=== PATIENT | female | born 1960 | race Caucasian/White ===

== ENCOUNTER 2022-11-18 13:07 | Inpatient (IN) ==
[2022-11-18] MEDS ORDERED: hydrALAZINE 20 MG/1 ML VIAL IV STA ×2 (13:28→14:04)
[2022-11-18] MEDS ORDERED: NITROGLYCERIN 2% OINT 1 INCH/GM PACK TOP STA (13:28)
[2022-11-18] MEDS ORDERED: cloNIDine 0.1 MG TABLET PO STA (13:28)
[2022-11-18] MEDS ORDERED: ASPIRIN 325 MG TABLET PO STA (13:28)
[2022-11-18 13:39] LABS: Basophils # 0.1 10*3/uL (0.0-0.2); Basophils % 0.6 % (0.0-0.8); Eosinophils # 0.6 10*3/uL (0.0-0.87); Eosinophils % 4.5 % (0.00-10.9); Hematocrit 39.2 VOL% (35.7-47.0); Hemoglobin 12.4 GM/DL (12.0-16.0); Immature Granulocytes % 0.5 %; Immature Granulocytes Absolute 0.07 #; Lymphocytes # 1.5 10*3/uL (1.4-4.0); Lymphocytes % 11.3 % (21.3-54.2); Mean Corpuscular HGB Conc 31.6 GM/DL (32-36); Mean Corpuscular Volume 97.3 FL (87-102); Mean Platelet Volume 9.4 FL (9.6-12.0); Monocytes # 0.9 10*3/uL (0.11-0.8); Monocytes % 6.8 % (1.7-12.7); Neutrophils % 76.3 % (38.7-73.9); Platelet Count 558 T/CUMM (130-400); Red Blood Count 4.03 MC/CUMM (3.8-5.5); Red Cell Distribution Width 17.4 % (9.3-17.3); White Blood Count 12.8 T/CUMM (4-12)
[2022-11-18 13:42] LABS: Arterial Base Excess iSTAT -7 MMOL/L (-2.5-2.5); Arterial Bicarbonate iSTAT 16.7 MMOL/L (20-26); Arterial O2 Saturation iSTAT 95 % (95-100); Arterial PCO2 iSTAT 28 MM HG (35-48); Arterial PO2 iSTAT 73 MM HG (80-95); Arterial Total CO2 iSTAT 18 MMO/L (23-27); Arterial pH iSTAT 7.387 (7.35-7.45)
[2022-11-18 13:48] LABS: INR 1.1; PT Patient Result 11.6 SECS (10.1-12.1)
[2022-11-18 14:01] LABS: Albumin 2.9 G/DL (3.4-5.0); Bilirubin,Total 0.4 MG/DL (0.20-1.00); Calcium 8.7 MG/DL (8.5-10.1); Osmolality,Calculated 290.1 MOS/KG (273-304); Potassium 4.9 MMOL/L (3.5-5.1); Total Protein 6.3 G/DL (6.4-8.2)
[2022-11-18] MEDS ORDERED: LORazepam 2 MG/1 ML VIAL IV STA (14:04)
[2022-11-18] MEDS ORDERED: FUROSEMIDE 40 MG/4 ML VIAL IV STA ×2 (14:16→15:02)
[2022-11-18 16:18] LABS: Urine Appearance Clear (Clear); Urine Color Yellow (Yellow)
[2022-11-18 16:19] LABS: Bilirubin,Urine Small mg/dL (Negative); Blood, Urine Negative (Negative); Glucose,Urine (UA) Negative (Negative); Ketones,Urine 40 mg/dL (Negative); Nitrite,Urine Negative (Negative); Protein,Urine 30 mg/dL (Negative); Urine Specific Gravity 1.025 (1.001-1.035); Urine Urobilinogen 0.2 eU/dL (<2.0); Urine pH 5.5 (4.5-8.0)
[2022-11-18 16:22] LABS: Hyaline Casts,Urine 7 /LPF (0-3); Mucus,Urine Occasional /LPF (Occasional); Squamous Epithelial Cell,Urine Occasional /HPF (0-10)
[2022-11-18] MEDS ORDERED: NITROGLYCERIN SL 0.4 MG TABLET SL PRN (18:13)
[2022-11-18] MEDS ORDERED: NICOTINE 21 MG/24 HR PATCH TRANSDERM PRN (18:14)
[2022-11-18] MEDS ORDERED: ACETAMINOPHEN 325 MG TABLET PO PRN (18:14)
[2022-11-18] MEDS ORDERED: guaiFENesin/DM ER 600-30 MG TABLET PO PRN (18:14)
[2022-11-18] MEDS ORDERED: ONDANSETRON 4 MG/2 ML VIAL IV PRN (18:14)
[2022-11-18] MEDS ORDERED: hydrALAZINE 20 MG/1 ML VIAL IV PRN (18:14)
[2022-11-18] MEDS ORDERED: diphenhydrAMINE CAP 25 MG CAPSULE PO PRN (18:14)
[2022-11-18 18:25] LABS: Arterial Base Excess iSTAT -9 MMOL/L (-2.5-2.5); Arterial Bicarbonate iSTAT 15.7 MMOL/L (20-26); Arterial O2 Saturation iSTAT 97 % (95-100); Arterial PCO2 iSTAT 28 MM HG (35-48); Arterial PO2 iSTAT 88 MM HG (80-95); Arterial Total CO2 iSTAT 17 MMO/L (23-27); Arterial pH iSTAT 7.356 (7.35-7.45)
[2022-11-18] MEDS ORDERED: ALBUTEROL/IPRATROPIUM 3 ML NEB RESP TX ONE (18:42)
[2022-11-18] MEDS: ALBUTEROL/IPRATROPIUM 3 ML NEB RESP TX SCH (18:46)
[2022-11-18] MEDS ORDERED: SACUBITRIL/VALSARTAN 49-51 MG TABLET PO SCH (21:00)
[2022-11-18] MEDS: carvediloL 25 MG TABLET PO SCH (21:00)
[2022-11-18] MEDS: HEPARIN 5,000 UNIT/1 ML VIAL SUBCUT SCH (21:01)
[2022-11-18] MEDS: FUROSEMIDE 40 MG/4 ML VIAL IV SCH (21:01)
[2022-11-19] MEDS: ALBUTEROL/IPRATROPIUM 3 ML NEB RESP TX SCH ×4 (00:21→19:28)
[2022-11-19 06:07] LABS: Calcium 8.4 MG/DL (8.5-10.1); Osmolality,Calculated 294.8 MOS/KG (273-304); Potassium 4.7 MMOL/L (3.5-5.1)
[2022-11-19 06:40] LABS: Basophils # 0.1 10*3/uL (0.0-0.2); Basophils % 0.5 % (0.0-0.8); Eosinophils # 0.7 10*3/uL (0.0-0.87); Eosinophils % 6.8 % (0.00-10.9); Hematocrit 30.7 VOL% (35.7-47.0); Immature Granulocytes % 0.6 %; Immature Granulocytes Absolute 0.06 #; Lymphocytes % 18.5 % (21.3-54.2); Mean Corpuscular HGB Conc 30.9 GM/DL (32-36); Mean Corpuscular Volume 99.4 FL (87-102); Mean Platelet Volume 9.6 FL (9.6-12.0); Monocytes % 8.9 % (1.7-12.7); Neutrophils % 64.7 % (38.7-73.9); Platelet Count 502 T/CUMM (130-400); Red Cell Distribution Width 17.8 % (9.3-17.3); White Blood Count 10.8 T/CUMM (4-12)
[2022-11-19 06:52] LABS: Hemoglobin 9.5 GM/DL (12.0-16.0); Red Blood Count 3.09 MC/CUMM (3.8-5.5)
[2022-11-19] MEDS: HEPARIN 5,000 UNIT/1 ML VIAL SUBCUT SCH ×2 (08:45→21:18)
[2022-11-19] MEDS: carvediloL 25 MG TABLET PO SCH ×2 (08:45→18:20)
[2022-11-19] MEDS ORDERED: ENALAPRIL 20 MG TABLET PO SCH (09:00)
[2022-11-19] MEDS: PANTOPRAZOLE 40 MG TABLET PO SCH (11:32)
[2022-11-19] MEDS: FOLIC ACID 1 MG TABLET PO SCH (11:32)
[2022-11-19] MEDS: LORazepam 1 MG TABLET PO PRN ×2 (11:32→22:22)
[2022-11-19] MEDS: methylPREDNISolone SOD SUC 40 MG/1 ML VIAL IV SCH ×2 (11:33→18:15)
[2022-11-19] MEDS: BISACODYL 5 MG TABLET PO SCH (11:33)
[2022-11-19] MEDS: ATORVASTATIN 80 MG TABLET PO SCH (11:33)
[2022-11-19] MEDS: amLODIPine 10 MG TABLET PO SCH (14:04)
[2022-11-19] MEDS: ASPIRIN EC 81 MG TABLET PO SCH (14:05)
[2022-11-19] MEDS: CLOPIDOGREL 75 MG TABLET PO SCH (14:05)
[2022-11-19] MEDS: FUROSEMIDE 40 MG/4 ML VIAL IV SCH (19:57)
[2022-11-20] MEDS: ALBUTEROL/IPRATROPIUM 3 ML NEB RESP TX SCH ×5 (00:51→23:58)
[2022-11-20] MEDS: methylPREDNISolone SOD SUC 40 MG/1 ML VIAL IV SCH ×3 (03:06→17:44)
[2022-11-20 04:57] LABS: Basophils % 0.1 % (0.0-0.8); Hematocrit 29.8 VOL% (35.7-47.0); Hemoglobin 9.3 GM/DL (12.0-16.0); Immature Granulocytes % 0.8 %; Immature Granulocytes Absolute 0.07 #; Lymphocytes # 0.9 10*3/uL (1.4-4.0); Lymphocytes % 10.8 % (21.3-54.2); Mean Corpuscular HGB Conc 31.2 GM/DL (32-36); Mean Corpuscular Volume 96.4 FL (87-102); Mean Platelet Volume 9.6 FL (9.6-12.0); Monocytes # 0.3 10*3/uL (0.11-0.8); Monocytes % 2.9 % (1.7-12.7); Neutrophils % 85.4 % (38.7-73.9); Platelet Count 494 T/CUMM (130-400); Red Blood Count 3.09 MC/CUMM (3.8-5.5); Red Cell Distribution Width 17.6 % (9.3-17.3); White Blood Count 8.7 T/CUMM (4-12)
[2022-11-20 05:12] LABS: Calcium 8.3 MG/DL (8.5-10.1); Osmolality,Calculated 294.4 MOS/KG (273-304); Potassium 5.3 MMOL/L (3.5-5.1)
[2022-11-20 05:26] LABS: Phosphorous 6.2 MG/DL (2.5-4.9); Uric Acid 13.5 MG/DL (2.6-6.0)
[2022-11-20] MEDS ORDERED: SODIUM ZIRCONIUM CYCLOSILICATE 10 GM PACK PO ONE (08:57)
[2022-11-20] MEDS ORDERED: FUROSEMIDE 40 MG/4 ML VIAL IV SCH (09:00)
[2022-11-20] MEDS: FOLIC ACID 1 MG TABLET PO SCH (09:37)
[2022-11-20] MEDS: BISACODYL 5 MG TABLET PO SCH (09:37)
[2022-11-20] MEDS: CLOPIDOGREL 75 MG TABLET PO SCH (09:37)
[2022-11-20] MEDS: ASPIRIN EC 81 MG TABLET PO SCH (09:37)
[2022-11-20] MEDS: ATORVASTATIN 80 MG TABLET PO SCH (09:37)
[2022-11-20] MEDS: carvediloL 25 MG TABLET PO SCH ×2 (09:38→17:44)
[2022-11-20] MEDS: PANTOPRAZOLE 40 MG TABLET PO SCH (09:38)
[2022-11-20] MEDS: LORazepam 1 MG TABLET PO PRN (09:43)
[2022-11-20] MEDS: hydrALAZINE 25 MG TABLET PO SCH ×3 (09:44→21:17)
[2022-11-20] MEDS: amLODIPine 10 MG TABLET PO SCH (09:44)
[2022-11-20] MEDS: HEPARIN 5,000 UNIT/1 ML VIAL SUBCUT SCH ×2 (09:46→21:17)
[2022-11-20] MEDS: TOPIRAMATE 100 MG TABLET PO SCH ×2 (12:34→21:17)
[2022-11-20] MEDS: LORazepam 1 MG TABLET PO SCH ×2 (15:55→21:17)
[2022-11-21 00:51] LABS: Arterial Base Excess iSTAT -6 MMOL/L (-2.5-2.5); Arterial Bicarbonate iSTAT 18.3 MMOL/L (20-26); Arterial O2 Saturation iSTAT 95 % (95-100); Arterial PCO2 iSTAT 31 MM HG (35-48); Arterial PO2 iSTAT 77 MM HG (80-95); Arterial Total CO2 iSTAT 19 MMO/L (23-27); Arterial pH iSTAT 7.381 (7.35-7.45)
[2022-11-21] MEDS: MORPHINE 2 MG/1 ML SYRINGE IV PRN ×2 (01:12→14:35)
[2022-11-21] MEDS: methylPREDNISolone SOD SUC 40 MG/1 ML VIAL IV SCH ×3 (01:15→17:14)
[2022-11-21 04:03] LABS: Protein/Creatinine Ratio,Urine 0.2 RATIO
[2022-11-21 04:52] LABS: Basophils % 0.1 % (0.0-0.8); Hemoglobin 9.5 GM/DL (12.0-16.0); Immature Granulocytes % 0.5 %; Immature Granulocytes Absolute 0.05 #; Lymphocytes # 0.6 10*3/uL (1.4-4.0); Lymphocytes % 5.6 % (21.3-54.2); Mean Corpuscular HGB Conc 31.7 GM/DL (32-36); Mean Corpuscular Volume 97.1 FL (87-102); Mean Platelet Volume 9.8 FL (9.6-12.0); Monocytes # 0.2 10*3/uL (0.11-0.8); Monocytes % 1.8 % (1.7-12.7); Platelet Count 461 T/CUMM (130-400); Red Blood Count 3.09 MC/CUMM (3.8-5.5); Red Cell Distribution Width 17.7 % (9.3-17.3)
[2022-11-21 05:10] LABS: Calcium 8.4 MG/DL (8.5-10.1); Osmolality,Calculated 298.7 MOS/KG (273-304); Potassium 4.6 MMOL/L (3.5-5.1)
[2022-11-21 05:11] LABS: Phosphorous 6.3 MG/DL (2.5-4.9); Uric Acid 13.5 MG/DL (2.6-6.0)
[2022-11-21 05:23] LABS: Hypochromia Slight; Lymphocytes 5 % (20-55); Nucleated Red Blood Cells 1 /100 WBC (0-5); Platelet Estimate Increased; Total Cells Counted 100
[2022-11-21] MEDS: ALBUTEROL/IPRATROPIUM 3 ML NEB RESP TX SCH ×3 (08:10→19:25)
[2022-11-21] MEDS: ASPIRIN EC 81 MG TABLET PO SCH (09:55)
[2022-11-21] MEDS: PANTOPRAZOLE 40 MG TABLET PO SCH (09:55)
[2022-11-21] MEDS: ATORVASTATIN 80 MG TABLET PO SCH (09:55)
[2022-11-21] MEDS: LORazepam 1 MG TABLET PO SCH ×3 (09:55→20:26)
[2022-11-21] MEDS: cloNIDine 0.1 MG TABLET PO SCH (09:55)
[2022-11-21] MEDS: hydrALAZINE 25 MG TABLET PO SCH (09:55)
[2022-11-21] MEDS: carvediloL 25 MG TABLET PO SCH ×2 (09:55→17:13)
[2022-11-21] MEDS: amLODIPine 10 MG TABLET PO SCH (09:56)
[2022-11-21] MEDS: BISACODYL 5 MG TABLET PO SCH (09:56)
[2022-11-21] MEDS: CLOPIDOGREL 75 MG TABLET PO SCH (09:56)
[2022-11-21] MEDS: FOLIC ACID 1 MG TABLET PO SCH (09:56)
[2022-11-21] MEDS: HEPARIN 5,000 UNIT/1 ML VIAL SUBCUT SCH ×2 (09:56→20:25)
[2022-11-21] MEDS: TOPIRAMATE 100 MG TABLET PO SCH ×2 (10:48→20:26)
[2022-11-21] MEDS ORDERED: PHENOL 1.4% THROAT SPRAY 177 ML BOTTLE PO PRN (12:17)
[2022-11-21] MEDS: ZALEPLON 5 MG CAPSULE PO PRN (20:25)
[2022-11-21] MEDS: ASCORBIC ACID 500 MG TABLET PO SCH (20:26)
[2022-11-22] MEDS: ALBUTEROL/IPRATROPIUM 3 ML NEB RESP TX SCH ×4 (00:13→19:21)
[2022-11-22] MEDS: methylPREDNISolone SOD SUC 40 MG/1 ML VIAL IV SCH ×3 (01:13→18:24)
[2022-11-22 04:35] LABS: Hematocrit 29.5 VOL% (35.7-47.0); Hemoglobin 9.3 GM/DL (12.0-16.0); Immature Granulocytes % 0.8 %; Immature Granulocytes Absolute 0.07 #; Lymphocytes # 0.9 10*3/uL (1.4-4.0); Lymphocytes % 9.5 % (21.3-54.2); Mean Corpuscular HGB Conc 31.5 GM/DL (32-36); Mean Corpuscular Volume 96.4 FL (87-102); Monocytes # 0.4 10*3/uL (0.11-0.8); Monocytes % 4.4 % (1.7-12.7); Neutrophils % 85.3 % (38.7-73.9); Platelet Count 428 T/CUMM (130-400); Red Blood Count 3.06 MC/CUMM (3.8-5.5); Red Cell Distribution Width 17.5 % (9.3-17.3); White Blood Count 8.92 T/CUMM (4-12)
[2022-11-22 05:02] LABS: Calcium 8.1 MG/DL (8.5-10.1); Osmolality,Calculated 299.8 MOS/KG (273-304); Potassium 4.7 MMOL/L (3.5-5.1)
[2022-11-22 05:04] LABS: Calcium 8.2 MG/DL (8.5-10.1); Osmolality,Calculated 300.7 MOS/KG (273-304)
[2022-11-22] MEDS: cloNIDine 0.1 MG TABLET PO SCH (09:28)
[2022-11-22] MEDS: ASCORBIC ACID 500 MG TABLET PO SCH ×2 (09:28→20:04)
[2022-11-22] MEDS: carvediloL 25 MG TABLET PO SCH ×2 (09:28→16:47)
[2022-11-22] MEDS: TOPIRAMATE 100 MG TABLET PO SCH ×2 (09:28→20:04)
[2022-11-22] MEDS: ATORVASTATIN 80 MG TABLET PO SCH (09:28)
[2022-11-22] MEDS: FOLIC ACID 1 MG TABLET PO SCH (09:28)
[2022-11-22] MEDS: LORazepam 1 MG TABLET PO SCH ×3 (09:29→20:05)
[2022-11-22] MEDS: ASPIRIN EC 81 MG TABLET PO SCH (09:29)
[2022-11-22] MEDS: BISACODYL 5 MG TABLET PO SCH (09:29)
[2022-11-22] MEDS: PANTOPRAZOLE 40 MG TABLET PO SCH (09:29)
[2022-11-22] MEDS: HEPARIN 5,000 UNIT/1 ML VIAL SUBCUT SCH ×2 (09:30→20:04)
[2022-11-22] MEDS: CLOPIDOGREL 75 MG TABLET PO SCH (09:30)
[2022-11-22] MEDS: ZALEPLON 5 MG CAPSULE PO PRN (20:05)
[2022-11-22] MEDS: MORPHINE 2 MG/1 ML SYRINGE IV PRN (20:07)
[2022-11-23] MEDS: ALBUTEROL/IPRATROPIUM 3 ML NEB RESP TX SCH ×4 (00:35→19:27)
[2022-11-23] MEDS: methylPREDNISolone SOD SUC 40 MG/1 ML VIAL IV SCH ×4 (02:03→22:16)
[2022-11-23 05:21] LABS: Basophils % 0.1 % (0.0-0.8); Hematocrit 32.1 VOL% (35.7-47.0); Hemoglobin 10.3 GM/DL (12.0-16.0); Immature Granulocytes % 0.5 %; Immature Granulocytes Absolute 0.06 #; Lymphocytes # 1.2 10*3/uL (1.4-4.0); Lymphocytes % 10.6 % (21.3-54.2); Mean Corpuscular HGB Conc 32.1 GM/DL (32-36); Mean Corpuscular Volume 96.4 FL (87-102); Mean Platelet Volume 10.1 FL (9.6-12.0); Monocytes # 0.5 10*3/uL (0.11-0.8); Monocytes % 4.7 % (1.7-12.7); Neutrophils % 84.1 % (38.7-73.9); Platelet Count 431 T/CUMM (130-400); Red Blood Count 3.33 MC/CUMM (3.8-5.5); Red Cell Distribution Width 17.2 % (9.3-17.3); White Blood Count 11.54 T/CUMM (4-12)
[2022-11-23 05:58] LABS: Calcium 8.3 MG/DL (8.5-10.1); Osmolality,Calculated 302.8 MOS/KG (273-304); Potassium 4.4 MMOL/L (3.5-5.1)
[2022-11-23] MEDS: MORPHINE 2 MG/1 ML SYRINGE IV PRN (08:12)
[2022-11-23] MEDS: carvediloL 25 MG TABLET PO SCH ×2 (09:51→17:43)
[2022-11-23] MEDS: ATORVASTATIN 80 MG TABLET PO SCH (09:51)
[2022-11-23] MEDS: cloNIDine 0.1 MG TABLET PO SCH (09:51)
[2022-11-23] MEDS: PANTOPRAZOLE 40 MG TABLET PO SCH (09:51)
[2022-11-23] MEDS: CLOPIDOGREL 75 MG TABLET PO SCH (09:51)
[2022-11-23] MEDS: ASPIRIN EC 81 MG TABLET PO SCH (09:51)
[2022-11-23] MEDS: ASCORBIC ACID 500 MG TABLET PO SCH ×2 (09:51→21:42)
[2022-11-23] MEDS: TOPIRAMATE 100 MG TABLET PO SCH ×2 (09:51→21:42)
[2022-11-23] MEDS: FOLIC ACID 1 MG TABLET PO SCH (09:52)
[2022-11-23] MEDS: LORazepam 1 MG TABLET PO SCH ×3 (09:52→21:42)
[2022-11-23] MEDS: HEPARIN 5,000 UNIT/1 ML VIAL SUBCUT SCH ×2 (09:57→21:42)
[2022-11-23] MEDS: BISACODYL 5 MG TABLET PO SCH (10:39)
[2022-11-24] MEDS: ALBUTEROL/IPRATROPIUM 3 ML NEB RESP TX SCH ×4 (00:27→20:51)
[2022-11-24 04:55] LABS: Basophils % 0.1 % (0.0-0.8); Hematocrit 30.9 VOL% (35.7-47.0); Hemoglobin 9.7 GM/DL (12.0-16.0); Immature Granulocytes % 0.5 %; Immature Granulocytes Absolute 0.05 #; Lymphocytes # 0.7 10*3/uL (1.4-4.0); Lymphocytes % 7.1 % (21.3-54.2); Mean Corpuscular HGB Conc 31.4 GM/DL (32-36); Mean Platelet Volume 10.2 FL (9.6-12.0); Monocytes # 0.2 10*3/uL (0.11-0.8); Monocytes % 2.2 % (1.7-12.7); Neutrophils % 90.1 % (38.7-73.9); Platelet Count 380 T/CUMM (130-400); Red Blood Count 3.22 MC/CUMM (3.8-5.5); White Blood Count 9.48 T/CUMM (4-12)
[2022-11-24 05:15] LABS: Calcium 8.3 MG/DL (8.5-10.1); Osmolality,Calculated 304.7 MOS/KG (273-304)
[2022-11-24] MEDS: ASCORBIC ACID 500 MG TABLET PO SCH ×2 (09:26→21:42)
[2022-11-24] MEDS: ATORVASTATIN 80 MG TABLET PO SCH (09:26)
[2022-11-24] MEDS: cloNIDine 0.1 MG TABLET PO SCH (09:26)
[2022-11-24] MEDS: carvediloL 25 MG TABLET PO SCH ×2 (09:27→16:10)
[2022-11-24] MEDS: FOLIC ACID 1 MG TABLET PO SCH (09:27)
[2022-11-24] MEDS: TOPIRAMATE 100 MG TABLET PO SCH ×2 (09:27→21:42)
[2022-11-24] MEDS: LORazepam 1 MG TABLET PO SCH ×3 (09:27→21:43)
[2022-11-24] MEDS: PANTOPRAZOLE 40 MG TABLET PO SCH (09:27)
[2022-11-24] MEDS: CLOPIDOGREL 75 MG TABLET PO SCH (09:27)
[2022-11-24] MEDS: ASPIRIN EC 81 MG TABLET PO SCH (09:27)
[2022-11-24] MEDS: HEPARIN 5,000 UNIT/1 ML VIAL SUBCUT SCH ×2 (09:29→21:45)
[2022-11-24] MEDS: methylPREDNISolone SOD SUC 40 MG/1 ML VIAL IV SCH ×2 (09:36→22:05)
[2022-11-24] MEDS: MORPHINE 2 MG/1 ML SYRINGE IV PRN (17:39)
[2022-11-25] MEDS: ALBUTEROL/IPRATROPIUM 3 ML NEB RESP TX SCH ×4 (01:17→19:25)
[2022-11-25 05:12] LABS: Hematocrit 30.9 VOL% (35.7-47.0); Hemoglobin 9.5 GM/DL (12.0-16.0); Immature Granulocytes % 0.6 %; Immature Granulocytes Absolute 0.05 #; Lymphocytes # 0.7 10*3/uL (1.4-4.0); Lymphocytes % 8.6 % (21.3-54.2); Mean Corpuscular HGB Conc 30.7 GM/DL (32-36); Mean Corpuscular Volume 97.8 FL (87-102); Mean Platelet Volume 10.4 FL (9.6-12.0); Monocytes # 0.2 10*3/uL (0.11-0.8); Monocytes % 2.8 % (1.7-12.7); Platelet Count 379 T/CUMM (130-400); Red Blood Count 3.16 MC/CUMM (3.8-5.5); Red Cell Distribution Width 17.2 % (9.3-17.3); White Blood Count 8.62 T/CUMM (4-12)
[2022-11-25 05:35] LABS: Calcium 8.5 MG/DL (8.5-10.1); Osmolality,Calculated 305.3 MOS/KG (273-304); Potassium 5.7 MMOL/L (3.5-5.1)
[2022-11-25] MEDS: MORPHINE 2 MG/1 ML SYRINGE IV PRN ×2 (07:44→22:23)
[2022-11-25 08:40] LABS: Calcium 8.6 MG/DL (8.5-10.1); Osmolality,Calculated 298.5 MOS/KG (273-304)
[2022-11-25] MEDS: FOLIC ACID 1 MG TABLET PO SCH (09:43)
[2022-11-25] MEDS: CLOPIDOGREL 75 MG TABLET PO SCH (09:43)
[2022-11-25] MEDS: carvediloL 25 MG TABLET PO SCH ×2 (09:43→19:12)
[2022-11-25] MEDS: ATORVASTATIN 80 MG TABLET PO SCH (09:43)
[2022-11-25] MEDS: cloNIDine 0.1 MG TABLET PO SCH (09:43)
[2022-11-25] MEDS: ASPIRIN EC 81 MG TABLET PO SCH (09:43)
[2022-11-25] MEDS: ASCORBIC ACID 500 MG TABLET PO SCH ×2 (09:44→21:39)
[2022-11-25] MEDS: LORazepam 1 MG TABLET PO SCH ×3 (09:44→21:39)
[2022-11-25] MEDS: PANTOPRAZOLE 40 MG TABLET PO SCH (09:48)
[2022-11-25] MEDS: TOPIRAMATE 100 MG TABLET PO SCH ×2 (09:48→21:39)
[2022-11-25] MEDS: HEPARIN 5,000 UNIT/1 ML VIAL SUBCUT SCH ×2 (09:51→21:39)
[2022-11-25] MEDS: hydrALAZINE 25 MG TABLET PO SCH ×3 (11:57→21:38)
[2022-11-26] MEDS: ALBUTEROL/IPRATROPIUM 3 ML NEB RESP TX SCH ×4 (04:25→21:05)
[2022-11-26 06:12] LABS: Calcium 8.9 MG/DL (8.5-10.1); Osmolality,Calculated 302.1 MOS/KG (273-304)
[2022-11-26 06:29] LABS: Basophils % 0.1 % (0.0-0.8); Eosinophils # 0.3 10*3/uL (0.0-0.87); Eosinophils % 2.4 % (0.00-10.9); Hematocrit 32.9 VOL% (35.7-47.0); Hemoglobin 10.2 GM/DL (12.0-16.0); Lymphocytes # 1.8 10*3/uL (1.4-4.0); Lymphocytes % 17.8 % (21.3-54.2); Mean Corpuscular Volume 97.6 FL (87-102); Mean Platelet Volume 10.4 FL (9.6-12.0); Monocytes # 0.8 10*3/uL (0.11-0.8); Monocytes % 7.6 % (1.7-12.7); Neutrophils % 71.1 % (38.7-73.9); Platelet Count 342 T/CUMM (130-400); Red Blood Count 3.37 MC/CUMM (3.8-5.5); Red Cell Distribution Width 17.2 % (9.3-17.3); White Blood Count 10.31 T/CUMM (4-12)
[2022-11-26] MEDS ORDERED: FUROSEMIDE 40 MG/4 ML VIAL IV ONE ×3 (08:22→10:46)
[2022-11-26] MEDS: LORazepam 1 MG TABLET PO SCH ×3 (09:24→21:34)
[2022-11-26] MEDS: predniSONE 20 MG TABLET PO SCH (09:24)
[2022-11-26] MEDS: hydrALAZINE 25 MG TABLET PO SCH ×3 (09:24→21:35)
[2022-11-26] MEDS: carvediloL 25 MG TABLET PO SCH ×2 (09:24→16:58)
[2022-11-26] MEDS: ASCORBIC ACID 500 MG TABLET PO SCH ×2 (09:24→21:34)
[2022-11-26] MEDS: ATORVASTATIN 80 MG TABLET PO SCH (09:24)
[2022-11-26] MEDS: cloNIDine 0.1 MG TABLET PO SCH (09:25)
[2022-11-26] MEDS: CLOPIDOGREL 75 MG TABLET PO SCH (09:25)
[2022-11-26] MEDS: TOPIRAMATE 100 MG TABLET PO SCH ×2 (09:25→21:34)
[2022-11-26] MEDS: ASPIRIN EC 81 MG TABLET PO SCH (09:25)
[2022-11-26] MEDS: FOLIC ACID 1 MG TABLET PO SCH (09:25)
[2022-11-26] MEDS: PANTOPRAZOLE 40 MG TABLET PO SCH (09:25)
[2022-11-26] MEDS: HEPARIN 5,000 UNIT/1 ML VIAL SUBCUT SCH ×2 (09:25→21:35)
[2022-11-26] MEDS ORDERED: ZALEPLON 5 MG CAPSULE PO PRN (22:11)
[2022-11-27] MEDS: ALBUTEROL/IPRATROPIUM 3 ML NEB RESP TX SCH ×2 (01:40→07:25)
[2022-11-27 05:10] LABS: Basophils % 0.1 % (0.0-0.8); Eosinophils # 0.1 10*3/uL (0.0-0.87); Eosinophils % 1.5 % (0.00-10.9); Hematocrit 32.6 VOL% (35.7-47.0); Hemoglobin 10.1 GM/DL (12.0-16.0); Immature Granulocytes % 0.9 %; Immature Granulocytes Absolute 0.09 #; Lymphocytes # 1.7 10*3/uL (1.4-4.0); Lymphocytes % 17.8 % (21.3-54.2); Mean Corpuscular Volume 98.2 FL (87-102); Mean Platelet Volume 10.5 FL (9.6-12.0); Monocytes # 0.7 10*3/uL (0.11-0.8); Monocytes % 7.7 % (1.7-12.7); Platelet Count 320 T/CUMM (130-400); Red Blood Count 3.32 MC/CUMM (3.8-5.5); Red Cell Distribution Width 17.2 % (9.3-17.3); White Blood Count 9.48 T/CUMM (4-12)
[2022-11-27 05:26] LABS: Calcium 8.2 MG/DL (8.5-10.1); Osmolality,Calculated 299.3 MOS/KG (273-304); Potassium 4.2 MMOL/L (3.5-5.1)
[2022-11-27] MEDS ORDERED: FUROSEMIDE 40 MG/4 ML VIAL IV ONE (07:39)
[2022-11-27] MEDS: ASCORBIC ACID 500 MG TABLET PO SCH (09:04)
[2022-11-27] MEDS: ATORVASTATIN 80 MG TABLET PO SCH (09:05)
[2022-11-27] MEDS: FOLIC ACID 1 MG TABLET PO SCH (09:05)
[2022-11-27] MEDS: ASPIRIN EC 81 MG TABLET PO SCH (09:05)
[2022-11-27] MEDS: PANTOPRAZOLE 40 MG TABLET PO SCH (09:05)
[2022-11-27] MEDS: cloNIDine 0.1 MG TABLET PO SCH (09:05)
[2022-11-27] MEDS: carvediloL 25 MG TABLET PO SCH (09:05)
[2022-11-27] MEDS: predniSONE 20 MG TABLET PO SCH (09:05)
[2022-11-27] MEDS: LORazepam 1 MG TABLET PO SCH (09:06)
[2022-11-27] MEDS: TOPIRAMATE 100 MG TABLET PO SCH (09:06)
[2022-11-27] MEDS: HEPARIN 5,000 UNIT/1 ML VIAL SUBCUT SCH (09:06)
[2022-11-27] MEDS: CLOPIDOGREL 75 MG TABLET PO SCH (09:22)
[2022-11-27 12:06] VITALS: BP 175/79
== END 2022-11-27 14:35 | disposition home health service (06) | DRG 280 ==
LOC: N.ED 13:07 → N.EDINP 18:14 → SUATTDRO 18:14 → N.TELES 19:58
PROVIDERS: ADMIT Internal Medicine Geriatric Medicine; ATTEND Internal Medicine